=== PATIENT | female | born 1990 | race Caucasian/White ===

== ENCOUNTER → 2019-12-15 | Outpatient (CLI) | payer MEDICAID ==
--- NOTE | 2019-12-15 17:30 | XR ---
EXAMINATION TYPE: XR cervical spine limited DATE OF EXAM: 12/15/2019 TECHNIQUE: Frontal and lateral views of the cervical spine were obtained. HISTORY: M99.01 Segmental and somatic dysfunction of cervic . Pain at base of skull, radiating down left arm. COMPARISON: None FINDINGS: The cervical spine is visualized in its entirety from C1 thru the top of T1 level, without evidence of acute fracture or dislocation. There is straightening of the cervical lordosis. Normal v ertebral body heights and disc spaces. The pre-vertebral soft tissue appears within normal limits. IMPRESSION: Straightening of the cervical lordosis may be positional or related to muscle strain. No acute fracture or subluxation.
--- NOTE | 2019-12-15 17:31 | XR ---
EXAMINATION TYPE: XR lumbar spine 2 or 3V DATE OF EXAM: 12/15/2019 CLINICAL HISTORY: Lower back pain. More pain on right hip. Muscle spasm left back. TECHNIQUE: Frontal and lateral radiographic views of the lumbar spine were obtained. COMPARISON: None FINDINGS: There are 5 lumbar type vertebral bodies identified. The lumbar spine shows satisfactory alignment without evidence of acute fracture or dislocation. Vertebral body heights and disk space he ights are within normal limits. No evidence of spondylolisthesis. The overlying soft tissue appears unremarkable. IMPRESSION: No acute osseous abnormality of the lumbar spine.
== END | disposition home or self-care (01) ==
LOC: RADXRMAIN 12:45
PROVIDERS: ATTEND Chiropractor
DX: M99.01 Segmental and somatic dysfunction of cervical region (principal); M62.830 Muscle spasm of back; M53.1 Cervicobrachial syndrome; M99.03 Segmental and somatic dysfunction of lumbar region; M54.5 Low back pain
CPT/HCPCS: 72040; 72100

== ENCOUNTER → 2021-05-12 | Outpatient (CLI) | payer MEDICAID, OTHER | END | disposition home or self-care (01) | LOC: LABWHC1 04:29 | PROVIDERS: ATTEND Emergency Medicine | DX: Z20.822 Contact with and (suspected) exposure to COVID-19 (principal) | CPT/HCPCS: 87635 ==

== ENCOUNTER → 2021-05-13 | Outpatient (CLI) | payer MEDICAID, OTHER | END | disposition home or self-care (01) | LOC: LABWHC1 04:20 | PROVIDERS: ATTEND Emergency Medicine | DX: Z20.822 Contact with and (suspected) exposure to COVID-19 (principal) | CPT/HCPCS: 87635 ==

== ENCOUNTER → 2021-05-24 | Outpatient (CLI) | payer MEDICAID, OTHER | END | disposition home or self-care (01) | LOC: LABWHC1 19:14 | PROVIDERS: ATTEND Emergency Medicine | DX: Z20.822 Contact with and (suspected) exposure to COVID-19 (principal) | CPT/HCPCS: 87635 ==

== ENCOUNTER → 2021-12-28 | Outpatient (CLI) | payer MEDICAID ==
--- NOTE | 2021-12-28 12:48 | CT ---
EXAMINATION TYPE: CT abdomen pelvis wo con DATE OF EXAM: 12/28/2021 COMPARISON: None INDICATION: Right lower quadrant abdominal/pelvic pain. DLP: 422.6 mGycm, Automated exposure control for dose reduction was used. CONTRAST: 0 mL of Isovue 300. Study performed with Oral Contrast TECHNIQUE: Axial images were obtained from above the diaphragm to the pubic rami in the axial plane a t 5 mm thick sections. Reconstructed images are reviewed on the computer in the coronal plane. FINDINGS: Limited CT sections are obtained the lung bases. The lung bases are clear. CT ABDOMEN: Liver: Normal Spleen: Normal Pancreas: Normal Adrenal glands: The adrenal glands are normal. Gallbladder: Normal Kidneys: No masses are evident. No hydronephrosis is present. No cysts are present. Delayed images were obtained through the kidneys, which remain unremarkable. Aorta: Normal Inferior vena cava: Normal. CT PELVIS: Loops of bowel within the abdomen and pelvis are normal. There are loops of bowel which are incom pletely distended or lack oral contrast limiting their evaluation. Appendix: Normal as visualized. This appears contrast filled with no adjacent inflammatory change. Urinary bladder: Normal. Genitourinary structures: Uterus appears normal. Adnexa are unremarkable. Osseous structures: No suspicious lytic or sclerotic lesions. Small bone islands are within the femor al heads. IMPRESSIONS: 1. Normal appendix. 2. No suspicious etiology to account for right lower quadrant pain and clinical management recommende d.
== END | disposition home or self-care (01) ==
LOC: RADCTMAIN 10:50
PROVIDERS: ATTEND Family Medicine
DX: K57.32 Diverticulitis of large intestine without perforation or abscess without bleeding (principal); R10.9 Unspecified abdominal pain
CPT/HCPCS: 74176

== ENCOUNTER 2024-01-16 03:57 | Emergency (ER) | payer OTHER ==
[2024-01-16] MEDS ORDERED: EMTRICITABINE/TENOFOVIR 200MG/300MG ONE (06:40)
[2024-01-16] MEDS ORDERED: DOLUTEGRAVIR SODIUM 50 MG TABLET PO ONE (06:40)
== END 2024-01-16 06:43 | disposition home or self-care (01) ==
LOC: EC 03:57
DX: Z77.21 Contact with and (suspected) exposure to potentially hazardous body fluids (principal)
CPT/HCPCS: 99282